=== PATIENT | female | born 1990 | race Hispanic/Latino ===

== ENCOUNTER 2017-11-01 05:38 | Emergency (ER) | payer OTHER, SELFPAY ==
[2017-11-01] MEDS ORDERED: Pantoprazole 40 MG VIAL ONE (06:11)
[2017-11-01] MEDS ORDERED: Ondansetron HCl/PF 4 MG/2 ML Vial ONE (06:11)
[2017-11-01 06:55] LABS: CKMB 0.6 ng/mL (0-6.6); Troponin I Less than 0.010 ng/mL (< 0.028)
[2017-11-01 07:01] LABS: Albumin 4.5 g/dL (3.5-5.0)
[2017-11-01 07:02] LABS: Chloride 106 mmol/L (98-107); Potassium 3.5 mmol/L (3.5-5.1); Sodium 139 mmol/L (136-145)
[2017-11-01 07:03] LABS: Calcium 9.8 mg/dL (7.8-10.44); Glucose 162 mg/dL (70-105)
[2017-11-01 07:04] LABS: Globulin 3.2 g/dL (2.4-3.5); Protein, Total 7.7 g/dL (6.0-8.3)
[2017-11-01 07:05] LABS: Anion Gap 16 mmol/L (10-20); Bilirubin, Total 0.3 mg/dL (0.2-1.2); Carbon Dioxide 21 mmol/L (22-29)
[2017-11-01 07:06] LABS: Alkaline Phosphatase 61 U/L (40-150)
[2017-11-01 07:07] LABS: Calc. Creatinine Clearance 0 mL/min (70-130); Estimated GFR-MDRD Greater than 90
[2017-11-01 07:08] LABS: BUN (Urea Nitrogen) 13 mg/dL (7.0-18.7)
[2017-11-01 07:09] LABS: ALT (SGPT) 10 U/L (8-55); AST (SGOT) 12 U/L (5-34); Lipase 14 U/L (8-78)
[2017-11-01 07:16] LABS: #Eosinphils 0.1 thou/uL (0.0-0.7); #Lymphocytes 1.7 thou/uL (1.20-3.40); #Neutrophils 15.6 thou/uL (1.40-6.50); %Basophils 0.2 % (0.0-1.0); %Eosinophils 0.7 % (0.0-10.0); %Lymphocytes 9.3 % (21.0-51.0); %Monocytes 5.3 % (0.0-10.0); %Neutrophils 84.5 % (42.0-75.0); Hemoglobin 13.6 g/dL (12.0-16.0); Mean Corpuscular HGB CONC 32.4 g/dL (32.0-36.0); Mean Corpuscular Hemoglobin 31.4 pg (27.0-31.0); Mean Corpuscular Volume 97.2 fl (81.0-99.0); Mean Platelet Volume 6.8 fL (7.4-10.4); Platelet Count 237 thou/uL (130-400); RBC Distribution Width 12.9 % (11.5-14.5); Red Blood Cell (RBC) Count 4.31 mill/uL (4.20-5.40); White Blood Cell (WBC) Count 18.5 thou/uL (4.8-10.8)
== END 2017-11-01 07:30 | disposition home or self-care (01) ==
LOC: ERS 05:38
DX: R11.2 Nausea with vomiting, unspecified (principal); R19.7 Diarrhea, unspecified; R10.9 Unspecified abdominal pain; F17.210 Nicotine dependence, cigarettes, uncomplicated
CPT/HCPCS: 80053; 82553; 83690; 84484; 85025; 96361; 96372; 96374; 96375; C9113; J2405

== ENCOUNTER 2018-04-25 17:34 | Emergency (ER) | payer BC, SELFPAY ==
[2018-04-25] MEDS ORDERED: Ondansetron ODT 8 MG TAB ONE (17:43)
[2018-04-25 18:41] LABS: #Basophils 0.1 thou/uL (0.0-0.2); #Eosinphils 0.2 thou/uL (0.0-0.7); #Monocytes 0.9 thou/uL (0.11-0.59); #Neutrophils 10.9 thou/uL (1.40-6.50); %Basophils 0.5 % (0.0-1.0); %Eosinophils 1.6 % (0.0-10.0); %Monocytes 6.6 % (0.0-10.0); %Neutrophils 77.3 % (42.0-75.0); Hemoglobin 14.6 g/dL (12.0-16.0); Mean Corpuscular HGB CONC 34.1 g/dL (32.0-36.0); Mean Corpuscular Hemoglobin 32.3 pg (27.0-31.0); Mean Corpuscular Volume 94.8 fL (78.0-98.0); Mean Platelet Volume 6.6 fL (7.4-10.4); Platelet Count 250 thou/uL (130-400); RBC Distribution Width 12.4 % (11.5-14.5); Red Blood Cell (RBC) Count 4.53 mill/uL (4.20-5.40); White Blood Cell (WBC) Count 14.1 thou/uL (4.8-10.8)
[2018-04-25 18:42] LABS: Bilirubin Negative (Negative); Blood, Urine Negative (Negative); Clarity CLEAR (Clear); Glucose, Urine (Dipstick) Negative (Negative); Leukocyte Small (Negative); Nitrite Negative (Negative); Protein, Urine (Dipstick) 100 mg/dL (Neg-Trace); Specific Gravity, Urine 1.027 (1.002-1.036); pH, Urine 8.5 (5.0-9.0)
[2018-04-25 18:45] LABS: Bacteria/HPF Rare-Few HPF (None Seen); WBC/HPF 0-3 HPF (0-3)
[2018-04-25 18:56] LABS: Pathc Cast-AUWi Flag 2.61 (0-2.49)
[2018-04-25 18:58] LABS: Pregnancy Test - Urine (BHCG) Negative (Negative); Pregu Control Background? CLEAR/WHITE (CLR/WHITE); Pregu Control Bar Appear? YES (CONTROL BAR); Specific Gravity 1.027 (1.002-1.036)
[2018-04-25 19:01] LABS: ALT (SGPT) 16 U/L (8-55); AST (SGOT) 16 U/L (5-34); Albumin 4.8 g/dL (3.5-5.0); Alkaline Phosphatase 68 U/L (40-150); Anion Gap 14 mmol/L (10-20); BUN (Urea Nitrogen) 11 mg/dL (7.0-18.7); Bilirubin, Total 0.7 mg/dL (0.2-1.2); Calc. Creatinine Clearance 0 mL/min (70-130); Calcium 9.6 mg/dL (7.8-10.44); Carbon Dioxide 23 mmol/L (22-29); Chloride 105 mmol/L (98-107); Estimated GFR-MDRD Greater than 90; Globulin 3.3 g/dL (2.4-3.5); Glucose 94 mg/dL (70-105); Lipase 8 U/L (8-78); Potassium 3.6 mmol/L (3.5-5.1); Protein, Total 8.1 g/dL (6.0-8.3); Sodium 138 mmol/L (136-145)
[2018-04-25 19:51] LABS: Hyaline Casts/LPF 0-3 HYALINE CAST LPF (0-3 Hyaline); Manual Microscopic Reviewed? No Path Casts Seen; RBC/HPF 0-3 HPF (0-3); Renal Epithelial None Seen HPF (0-3); Transitional Epithelial NONE SEEN HPF (0-3)
== END 2018-04-25 20:41 | disposition home or self-care (01) ==
LOC: ERS 17:34
DX: R11.2 Nausea with vomiting, unspecified (principal); F10.10 Alcohol abuse, uncomplicated; Z71.6 Tobacco abuse counseling; F17.210 Nicotine dependence, cigarettes, uncomplicated
CPT/HCPCS: 80053; 81003; 81015; 81025; 83690; 85025; 96360; 96361; 99406

== ENCOUNTER 2018-06-10 11:10 | Emergency (ER) | payer BC, SELFPAY ==
[2018-06-10 12:17] LABS: #Basophils 0.1 thou/uL (0.0-0.2); #Eosinphils 0.3 thou/uL (0.0-0.7); #Monocytes 0.8 thou/uL (0.11-0.59); #Neutrophils 6.4 thou/uL (1.40-6.50); %Basophils 0.5 % (0.0-1.0); %Eosinophils 2.3 % (0.0-10.0); %Lymphocytes 34.6 % (21.0-51.0); %Monocytes 6.7 % (0.0-10.0); %Neutrophils 55.9 % (42.0-75.0); Hemoglobin 12.5 g/dL (12.0-16.0); Mean Corpuscular HGB CONC 33.3 g/dL (32.0-36.0); Mean Corpuscular Hemoglobin 32.2 pg (27.0-31.0); Mean Corpuscular Volume 96.6 fL (78.0-98.0); Mean Platelet Volume 6.8 fL (7.4-10.4); Platelet Count 202 thou/uL (130-400); RBC Distribution Width 12.4 % (11.5-14.5); Red Blood Cell (RBC) Count 3.88 mill/uL (4.20-5.40); White Blood Cell (WBC) Count 11.4 thou/uL (4.8-10.8)
[2018-06-10 12:21] LABS: BHCG - Serum Negative (NEGATIVE); Pregs Control Background? CLEAR/WHITE (CLR/WHITE); Pregs Control Bar Appear? YES (CONTROL BAR)
[2018-06-10 12:42] LABS: ALT (SGPT) 11 U/L (8-55); AST (SGOT) 11 U/L (5-34); Albumin 4.2 g/dL (3.5-5.0); Alkaline Phosphatase 72 U/L (40-150); Anion Gap 12 mmol/L (10-20); BUN (Urea Nitrogen) 7 mg/dL (7.0-18.7); Bilirubin, Total 0.2 mg/dL (0.2-1.2); CK (CPK) 62 U/L (29-168); Calc. Creatinine Clearance 0 mL/min (70-130); Calcium 9.1 mg/dL (7.8-10.44); Carbon Dioxide 26 mmol/L (22-29); Chloride 104 mmol/L (98-107); Estimated GFR-MDRD Greater than 90; Globulin 2.8 g/dL (2.4-3.5); Glucose 101 mg/dL (70-105); Potassium 3.6 mmol/L (3.5-5.1); Sodium 138 mmol/L (136-145)
[2018-06-10 12:56] LABS: Bilirubin Negative (Negative); Blood, Urine Negative (Negative); Clarity CLOUDY (Clear); Glucose, Urine (Dipstick) Negative (Negative); Leukocyte Negative (Negative); Nitrite Negative (Negative); Protein, Urine (Dipstick) Negative (Neg-Trace); Specific Gravity, Urine 1.024 (1.002-1.036); Urobilinogen 0.2 mg/dL (0.2-1.0)
[2018-06-10 13:11] LABS: Amphetamine Not Detected (NotDetected); Barbiturates Screen Not Detected (NotDetected); Benzodiazepine Screen Detected (NotDetected); Cocaine Metabolite Screen Not Detected (NotDetected); Medtox Control Line Valid? VALID (VALID); Medtox Reader # READER 1; Methadone Not Detected (NotDetected); Methamphetamine Not Detected (NotDetected); Opiate Screen Not Detected (NotDetected); Oxycodone Screen Not Detected (NotDetected); Phencyclidine (PCP) Not Detected (NotDetected); THC/Cannabinoid Screen Detected (NotDetected); Tricyclic Screen Not Detected (NotDetected)
--- NOTE | 2018-06-10 13:36 | RAD ---
CHEST TWO VIEWS: HISTORY: Chest pain. COMPARISON: 03/16/2006 FINDINGS: The cardiac silhouette and pulmonary vasculature are unremarkable. The mediastinum is midline. No c onfluent air space consolidation, pneumothorax, or pleural fluid. IMPRESSION: No active cardiopulmonary abnormalities demonstrated. POS: [facility]
--- NOTE | 2018-06-19 14:38 | EKG ---
Test Reason : Blood Pressure : / mmHG Vent. Rate : 098 BPM Atrial Rate : 098 BPM P-R Int : 124 ms QRS Dur : 076 ms QT Int : 334 ms P-R-T Axes : 071 057 051 degrees QTc Int : 426 ms Normal sinus rhythm Possible Left atrial enlargement Borderline ECG Confirmed by ROSE MARIE TOVAR, MARICHUY Pruitt ([id number]), news videotape editor REJI FOFANA ([id number]) on 06/19/2018 2:38:08 PM Referred By: Confirmed By:MARICHUY TROTTER MD
== END 2018-06-10 13:54 | disposition home or self-care (01) ==
LOC: ERS 11:10
DX: M79.1 Myalgia (principal); F17.210 Nicotine dependence, cigarettes, uncomplicated
CPT/HCPCS: 71046; 80053; 80306; 81003; 82550; 84703; 85025; 93005; 96360; 96361

== ENCOUNTER 2018-07-21 08:36 | Outpatient (CLI) | payer MEDICAID | END 2018-07-21 08:37 | disposition home or self-care (01) | LOC: BICULT 08:36 | PROVIDERS: ATTEND Nurse Practitioner Women's Health | DX: N63.11 Unspecified lump in the right breast, upper outer quadrant (principal) ==

== ENCOUNTER 2019-06-16 20:12 | Emergency (ER) | payer MEDICAID, OTHER ==
[2019-06-16 20:41] LABS: #Eosinphils 0.3 thou/uL (0.0-0.7); #Lymphocytes 2.1 thou/uL (1.20-3.40); #Neutrophils 7.4 thou/uL (1.40-6.50); %Basophils 0.3 % (0.0-1.0); %Eosinophils 2.4 % (0.0-10.0); %Lymphocytes 19.6 % (21.0-51.0); %Monocytes 8.9 % (0.0-10.0); %Neutrophils 68.9 % (42.0-75.0); Hemoglobin 10.1 g/dL (12.0-16.0); Mean Corpuscular HGB CONC 35.9 g/dL (32.0-36.0); Mean Corpuscular Hemoglobin 33.2 pg (27.0-31.0); Mean Corpuscular Volume 92.5 fL (78.0-98.0); Mean Platelet Volume 6.6 fL (7.4-10.4); Platelet Count 227 thou/uL (130-400); RBC Distribution Width 11.3 % (11.5-14.5); Red Blood Cell (RBC) Count 3.03 mill/uL (4.20-5.40); White Blood Cell (WBC) Count 10.7 thou/uL (4.8-10.8)
[2019-06-16 21:02] LABS: ALT (SGPT) Less than 7 U/L (8-55); AST (SGOT) 8 U/L (5-34); Albumin 3.4 g/dL (3.5-5.0); Alkaline Phosphatase 104 U/L (40-150); Anion Gap 12 mmol/L (10-20); BUN (Urea Nitrogen) 8 mg/dL (7.0-18.7); Bilirubin, Total 0.2 mg/dL (0.2-1.2); Calc. Creatinine Clearance 0 mL/min (70-130); Calcium 8.6 mg/dL (7.8-10.44); Carbon Dioxide 20 mmol/L (22-29); Chloride 105 mmol/L (98-107); Estimated GFR-MDRD Greater than 90; Glucose 92 mg/dL (70-105); Potassium 3.3 mmol/L (3.5-5.1); Protein, Total 6.4 g/dL (6.0-8.3); Sodium 134 mmol/L (136-145)
[2019-06-16 21:11] LABS: Bacteria/HPF None Seen HPF (None Seen); Bilirubin Negative (Negative); Blood, Urine Negative (Negative); Clarity Clear (Clear); Glucose, Urine (Dipstick) Normal (Negative); Leukocyte 250 Leu/uL (Negative); Nitrite Negative (Negative); Protein, Urine (Dipstick) 30 mg/dL (Neg-Trace); RBC/HPF 0-3 HPF (0-3); Urobilinogen 6 mg/dL (Less than 2)
== END 2019-06-16 22:10 | disposition home or self-care (01) ==
LOC: ERS 20:12
DX: O98.513 Other viral diseases complicating pregnancy, third trimester (principal); O21.2 Late vomiting of pregnancy; Z3A.28 28 weeks gestation of pregnancy; Z87.891 Personal history of nicotine dependence
CPT/HCPCS: 36415; 80053; 81003; 81015; 85025; 99283

== ENCOUNTER 2019-07-24 12:20 | Day surgery (SDC) | payer OTHER ==
[2019-07-24 12:45] VITALS: BP 112/65; TEMP 98; BMI 26.6
[2019-07-24] MEDS ORDERED: hydrALAZINE 20 MG/ML VIAL SLOW IVP PRN (12:45)
[2019-07-24] MEDS ORDERED: Lactated Ringer's 1,000 ML IV SCH (13:00)
--- NOTE | 2019-07-24 13:05 | PDOC.FPROB ---
FMR OB H&P: HPI - History of Present Illness Chief Complaint: Contractions Indentification: 29 year old at 34.2 wks History of Present Illness: 29 year old at 34.2 wks by LMP/7 wk meenakshi with TRAE 09/02/2019 presents with contractions since 11 AM. Patient was at work and the pain was bad enough that she felt like she couldn't stand up straight or walk. She states she feels vaginal pressure and vaginal pain. She is unable to state how far apart the contractions are as it just "hurts". She endorses white, thick vaginal discharge since this morning that has an odor. She denies any STD's during this . Patient endorses having intercourse within the last 48 hours. She denies vaginal bleeding. She endorses good movement. 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 She denies alcohol or drug use. - Family History Family History: Family hx DM FMR OB H&P: Medications - Current Home Medications: Medication Instructions Recorded Confirmed Type metroNIDAZOLE [Flagyl] 500 mg PO BID #14 tab 07/24/19 Rx Allergies/Adverse Reactions: Allergies Allergy/AdvReac Type Severity Reaction Status Date / Time No Known Allergies Allergy Verified 07/24/19 12:46 FMR OB H&P: ROS - Review of Systems General: denies: fever/chills, weight/appetite/sleep changes Eyes: denies: vision changes ENT: denies: nasal congestion, sore throat Cardiovascular: denies: chest pain, palpitation, edema Respiratory: denies: cough, congestion, shortness of breath Gastrointestinal: reports: abdominal pain, vomiting (AM when waking). denies: diarrhea, constipation Genitourinary (Female): reports: vaginal discharge, vaginal pain, vaginal pressure. denies: dysuria, vaginal bleeding Musculoskeletal: denies: pain, stiffness Neurologic: denies: numbness, syncope Integumentary: denies: itching, rash, lesions Hematologic/Lymphatic: denies: prolonged or excessive bleeding Psychological: denies: depression, anxiety FMR OB H&P: Vital Signs - Maternal Vital signs: Vital Signs - First Documented Temp Pulse Resp BP Pulse Ox 98.0 F 92 18 112/65 97 07/24/19 12:36 07/24/19 12:36 07/24/19 12:36 07/24/19 12:36 07/24/19 12:36 - Heart Tones Baseline: 120 Variability: moderate Acceleration: present Deceleration: variable Category: category 2 [place] contractions every: q3-5 min FMR OB H&P: Physical Exam - Physical Exam General: awake, alert and oriented Deviation from normal: Deep breathing, mild distress HEENT: MMM, grossly normal vision, grossly normal hearing Heart: RRR, pulses present, no edema General: CTAB, no respiratory distress Abdomen: soft, gravid, non-tender Musculoskeletal: pulses present, FROM in all four extremities Neurological: no tremor, no focal deficit Skin: no rash, capillary refill <2 seconds Lymphatic: no unusual bruising or bleeding, no purpura - Pelvic Exam SVE: 50/-3 Presentation: cephalic based on ultrasound FMR OB H&P: A/P - Problem List (1) Status: Acute (2) Glucose intolerance Status: Acute Code(s): E74.39 - OTHER DISORDERS OF INTESTINAL CARBOHYDRATE ABSORPTION (3) Cervical dysplasia Status: Acute (4) GERD (gastroesophageal reflux disease) Status: Acute Code(s): K21.9 - GASTRO-ESOPHAGEAL REFLUX DISEASE WITHOUT ESOPHAGITIS (5) Tobacco abuse Status: Acute Code(s): Z72.0 - TOBACCO USE (6) Spontaneous Status: Acute Code(s): O03.9 - COMPLETE OR UNSP SPONTANEOUS WITHOUT COMPLICATION Disposition: 29 year old at 34.2 wks presents with contractions 1. sIUP w/ contractions - Contractions q3-5 min - >34 wks, so FFN not as useful; patient has also had vaginal manipulation in last 48h - Cervical length via TVUS 4 cm - Cervical check /-3 - Sterile speculum exam with moderate amount of foul smelling, white, thick, mucous discharge. VP3 positive for trichomonas and BV. GC/CT pending. - 1L fluid bolus - Cephalic presentation on ultrasound 2. Glucose intolerance - 1h GTT 154, patient reports normal 3h GTT 3. Cervical dysplasia - s/p colpo - NILM 06/2018 4. GERD - Recommend continued use of PPI 5. Hx CT in 2014 - neg this - GC/CT pending 6. Hx tobacco use - Patient states she quit and has not smoked during this 7. SAB x3 - Different FOB's 8. Hx BV in - s/p treatment 2 months ago Dispo: Ruled out PTL. Contractions have stopped on monitor. Patient with trichomonas and BV. Will send Flagyl 500 mg BID x7 days to pharmacy. Patient will need CHRISTIE in 3-4 weeks. Advised patient to refrain from sexual intercourse until her partner has been evaluated and treated. Return precautions provided. Discussion: Date/Time: 07/24/19 1300 This H&P was discussed with Dr. Cody who agrees with the above documentation and plan. Signature: Lulu Dorantes DO PGY-3 Addendum - Attending - Attending Attestation Date/Time: 07/24/192150 I personally evaluated the patient and discussed the management with Dr. Dorantes. I agree with the History, Examination, Assessment and Plan documented above with any addition or exceptions noted below. 29 year old at 34.2 wks here with abd pain. No evidence of labor. Category 1 strip. BV and Trich. Stable for d/c home with Rx and counseled.
--- NOTE | 2019-07-24 14:05 | ULT ---
EXAM: Limited pelvic ultrasound PROVIDED CLINICAL HISTORY: Assess cervical length COMPARISON: None FINDINGS: The cervix measures 4 cm in length. The cervix appears closed. IMPRESSION: As above.
[2019-07-25 19:48] LABS: Chlamydia by PCR Not Detected (NotDetected); GC by PCR Not Detected (NotDetected)
== END 2019-07-24 15:08 | disposition home health service (06) ==
LOC: L&D/OP 12:20
PROVIDERS: ATTEND Family Medicine
DX: O47.03 False labor before 37 completed weeks of gestation, third trimester (principal); O99.613 Diseases of the digestive system complicating pregnancy, third trimester; K21.9 Gastro-esophageal reflux disease without esophagitis; O99.283 Endocrine, nutritional and metabolic diseases complicating pregnancy, third trimester; E74.39 Other disorders of intestinal carbohydrate absorption; O98.313 Other infections with a predominantly sexual mode of transmission complicating pregnancy, third trimester; A59.01 Trichomonal vulvovaginitis; Z3A.34 34 weeks gestation of pregnancy; Z87.891 Personal history of nicotine dependence
CPT/HCPCS: 76856; 87480; 87491; 87510; 87591; 87660

== ENCOUNTER 2019-08-26 22:51 | Inpatient (IN) | payer OTHER ==
[~2019-08-26 22:51] MED LIST: Bupivacaine HCl 0.5%/Epinephrine 1:200,000/PF 30 ml Vial ONE
[2019-08-26] MEDS ORDERED: Methylergonovine 0.2 MG/ML VIAL IM PRN (23:35)
[2019-08-26] MEDS ORDERED: hydrALAZINE 20 MG/ML VIAL SLOW IVP PRN (23:35)
[2019-08-26] MEDS ORDERED: Ibuprofen 800 MG TAB PO PRN (23:35)
[2019-08-26] MEDS ORDERED: Lidocaine 1% (PF) 30 ML VIAL SC PRN (23:35)
[2019-08-26] MEDS ORDERED: Promethazine HCl 25 MG/ML VIAL IM PRN (23:35)
[2019-08-26] MEDS ORDERED: Butorphanol Tartrate 1 MG/ML VIAL SLOW IVP PRN (23:35)
[2019-08-26] MEDS ORDERED: Carboprost 250 MCG/ML AMP IM PRN (23:35)
[2019-08-26] MEDS ORDERED: Ondansetron PF 4 MG/2 ML Vial IVP PRN (23:35)
[2019-08-26] MEDS ORDERED: Misoprostol 200 MCG TAB PR PRN (23:35)
--- NOTE | 2019-08-26 23:35 | PDOC.FPROB ---
FMR OB H&P: HPI - History of Present Illness Chief Complaint: Contractions Indentification: 25yo History of Present Illness: 29 year old at 39.0 wks by LMP/7 wk sono with TRAE 09/02/2019 presents with painful contractions since 2200. Denies any vaginal bleed, discharge, loss of fluid. Confirms good movement. Primary Care Physician: Dr. 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: Hx of chlamydia in 2014, negative this Trich in this with no CHRISTIE reported Hx of cervical dysplasia - s/p colpo NILM 06/2018 - Surgical History Sx History: Appendectomy - Social History Social History: Denies alcohol or drug use Was smoking 3 cigs per week pre- - Family History Family History: + DM FMR OB H&P: Medications - Current Home Medications: Medication Instructions Recorded Confirmed Type metroNIDAZOLE [Flagyl] 500 mg PO BID #14 tab 07/24/19 Rx Allergies/Adverse Reactions: Allergies Allergy/AdvReac Type Severity Reaction Status Date / Time No Known Allergies Allergy Verified 07/24/19 12:46 FMR OB H&P: Vital Signs - Maternal Vital signs: Blood pressure: 98/74 Pulse: 92 Afebrile - Heart Tones Baseline: 130 Variability: moderate Acceleration: present Deceleration: absent Category: category 1 [place] contractions every: 3-4 min FMR OB H&P: A/P - Problem List (1) Term Current Visit: Yes Status: Acute Code(s): Z34.90 - ENCNTR FOR SUPRVSN OF NORMAL , UNSP, UNSP TRIMESTER (2) Group B streptococcal infection during Current Visit: Yes Status: Acute Code(s): O98.819 - OTH MATERNAL INFEC/ PARASTC DISEASES COMP PREG, UNSP TRI; B95.1 - STREPTOCOCCUS, GROUP B, CAUSING DISEASES CLASSD ELSWHR (3) Trichomonal vaginitis during Current Visit: Yes Status: Acute Code(s): O23.599 - INFECTION OTH PRT GENITAL TRACT IN , UNSP TRIMESTER; A59.01 - TRICHOMONAL VULVOVAGINITIS (4) Active labor at term Current Visit: Yes Status: Acute Code(s): RAB0828 - (5) Cervical dysplasia Current Visit: No Status: Acute (6) GERD (gastroesophageal reflux disease) Current Visit: No Status: Acute Code(s): K21.9 - GASTRO-ESOPHAGEAL REFLUX DISEASE WITHOUT ESOPHAGITIS (7) Glucose intolerance Current Visit: No Status: Acute Code(s): E74.39 - OTHER DISORDERS OF INTESTINAL CARBOHYDRATE ABSORPTION (8) Tobacco abuse Current Visit: No Status: Acute Code(s): Z72.0 - TOBACCO USE Disposition: 29 yo @39.0wk via LMP/7.2wk sono presents in active labor TIUP in active labor - /-2 - Admit to L&D for expectant management - Uncomplicated - GBS +, will start Pen G for prophylaxis - Desires epidural - Anesthesia consulted Trichomonas - + 07/24 - No reported test of cure GBS positive - Pen G prophylaxis Cervical dysplasia - s/p colpo - NILM Tobacco Use - Quit in 1st trimester Hx of SAB x3 - Different FOB - No D&C's Dispo: Admit to L&D for expectant management Discussion: Date/Time: 08/26/19 9447 This H&P was discussed with Dr. Machado and Dr. Dorantes who agree with the above documentation and plan. Signature: Gianluca Collins D.O. - PGY1
[2019-08-26] MEDS ORDERED: Lactated Ringer's 1,000 ML IV SCH (23:45)
[2019-08-26] MEDS ORDERED: Fentanyl 4 mcg/Bup 0.1% Cadd 100 ML ONE (23:52)
[2019-08-26 23:53] LABS: Hemoglobin 11.5 g/dL (12.0-16.0); Mean Corpuscular HGB CONC 34.1 g/dL (32.0-36.0); Mean Corpuscular Hemoglobin 30.6 pg (27.0-31.0); Mean Platelet Volume 7.4 fL (7.4-10.4); Platelet Count 219 thou/uL (130-400); RBC Distribution Width 12.3 % (11.5-14.5); Red Blood Cell (RBC) Count 3.76 mill/uL (4.20-5.40); White Blood Cell (WBC) Count 12.8 thou/uL (4.8-10.8)
[2019-08-26] MEDS ORDERED: Penicillin G Potassium 5 MILL.UNITS in Sodium Chloride 0.9% 100 ML IVPB SCH (23:59)
[2019-08-27 00:28] VITALS: BMI 28.0
[2019-08-27 00:30] LABS: Syphilis Antibody Nonreactive (Nonreactive); Syphilis Antibody Index 0.05 S/CO (<1.00 Non-Reactive)
[2019-08-27] MEDS ORDERED: Acetaminophen 325 MG TAB PO PRN (00:36)
[2019-08-27] MEDS ORDERED: Naloxone HCl 0.4 mg/ml Vial IVP PRN ×2 (00:36)
[2019-08-27] MEDS ORDERED: ePHEDrine/0.9% NaCl/PF SYRINGE 50 mg/10 ml SLOW IVP PRN (00:36)
[2019-08-27] MEDS ORDERED: Lactated Ringer's 500 ML IV PRN (00:36)
[2019-08-27] MEDS ORDERED: diphenhydrAMINE 50 MG/ML VIAL IVP PRN (00:36)
[2019-08-27] MEDS ORDERED: Ondansetron PF 4 MG/2 ML Vial IVP PRN ×3 (00:36→06:38)
[2019-08-27] MEDS ORDERED: Promethazine HCl 25 MG/ML VIAL IM PRN (00:36)
[2019-08-27] MEDS ORDERED: Fentanyl 4 mcg/Bupivacaine 0.1% Cassette 100 ML EPIDURAL SCH (00:45)
[2019-08-27] MEDS ORDERED: Communication Order-Pharmacy FS SCH ×2 (00:45→06:45)
[2019-08-27 01:33] LABS: HBSAg Index 0.12 S/CO (0-0.99); Hep B Surf Ag Non-Reactive S/CO (NonReactive)
--- NOTE | 2019-08-27 04:22 | PDOC.OPDEL ---
OB Operative/Delivery Note Delivery Dr/Surgeon: Dr. Collins Assist: Dr. Dorantes - Dr. Machado attending Pre-Delivery Diagnosis: active labor Procedure/Post Delivery Dx: spontaneous vaginal delivery Weeks gestation: 39 (1) Anesthesia: epidural - Findings A Sex: male - 1 min: 9 - 5 min: 9 - Additional Findings/Plan Placenta delivered: spontaneous Repaired Obstetrical Laceration: none Estimated blood loss: 128 Compilations/Other Findings: Vaginal Delivery Note This is a 29 year old female @ 39.1wks who delivered a viable M infant at 0408 on 08/27/2019. SROM with meconium noted prior to delivery. Following an uneventful antepartum course, a vigorous male was delivered over an intact perineum in the occipitoanterior position. Anterior Shoulder and then remainder of the body delivered. No nuchal cord. The head was held down and mouth and nares were bulb suctioned. Cord clamped and cut and cord blood collected. Placenta delivered intact with a 3 vessel cord noted. Fundal massage was performed and the fundus was firm. The cervix and vagina were inspected and found to be free of lacerations. went to nursery in good condition for routine care. Apgars were 9/9 at 1 & 5 minutes, respectively. Patient tolerated delivery well and went to after routine recovery/ care. Post delivery plan: routine recovery
[2019-08-27] MEDS: NS / Oxytocin 40 units/1000ml 1,000 ML IV PRN ×2 (04:59→06:10)
[2019-08-27] MEDS ORDERED: Penicillin G 2.5 MILL.units 2.5 MILL.UNITS in Premix Bag 1 BAG IVPB SCH (05:00)
[2019-08-27] MEDS ORDERED: hydrALAZINE 20 MG/ML VIAL SLOW IVP PRN ×2 (06:10→06:37)
[2019-08-27] MEDS ORDERED: NS / Oxytocin 40 units/1000ml 1,000 ML IV SCH ×2 (06:10→06:45)
[2019-08-27] MEDS ORDERED: Preparation H Ointment 28 GM TUBE PR PRN ×2 (06:10→06:38)
[2019-08-27] MEDS ORDERED: Milk Of Magnesia 30 ML UDCUP PO PRN ×2 (06:10→06:37)
[2019-08-27] MEDS ORDERED: Ibuprofen 800 MG TAB PO SCH (06:10)
[2019-08-27] MEDS ORDERED: diphenhydrAMINE 25 MG CAP PO PRN ×2 (06:10→06:36)
[2019-08-27] MEDS ORDERED: Lanolin Ointment 7 GM TUBE TOP PRN ×2 (06:10→06:37)
[2019-08-27] MEDS ORDERED: Bisacodyl 10 MG SUPP PR PRN ×2 (06:10→06:35)
[2019-08-27] MEDS ORDERED: Butorphanol Tartrate 1 MG/ML VIAL SLOW IVP PRN (06:35)
[2019-08-27] MEDS ORDERED: Ferrous Sulfate 325 MG TAB PO SCH (08:00)
[2019-08-27] MEDS ORDERED: Prenatal Vitamin 1 TAB PO SCH (09:00)
[2019-08-27] MEDS ORDERED: Docusate Calcium (SURFAK) 240 MG CAP PO SCH (09:00)
[2019-08-27] MEDS: Ferrous Sulfate 325 MG TAB PO SCH ×2 (09:38→16:52)
[2019-08-27] MEDS: Docusate Calcium (SURFAK) 240 MG CAP PO SCH ×2 (09:38→21:06)
[2019-08-27] MEDS: Prenatal Vitamin 1 TAB PO SCH (09:38)
[2019-08-27] MEDS: Ibuprofen 800 MG TAB PO SCH ×2 (13:50→21:06)
[2019-08-28] MEDS: Ibuprofen 800 MG TAB PO SCH ×3 (05:37→21:53)
--- NOTE | 2019-08-28 05:41 | PDOC.PP ---
Post Progress Note Post Day #: 1 PO intake tolerated: yes Flatus: yes Ambulation: yes Vital Signs (12 hours) Temp Pulse Resp BP BP Pulse Ox 08/28/19 03:35 98.6 F 74 16 94/54 L 08/28/19 00:15 98.6 F 92 16 99/51 L 08/27/19 20:15 98.4 F 89 20 118/89 99 Weight Weight 69.4 kg - Physical Examination General: NAD Cardiovascular: no m/r/g, RRR Respiratory: clear to auscultation bilaterally, non-labored breathing Abdominal: + bowel sounds, lochia, no distention, appropriately TTP Extremities: negative homans (B) Skin: no rash Neurological: no gross focal deficits Psychiatric: A&Ox3, normal affect Result Diagrams: 08/26/19 23:44 Additional Labs: Post Labs Blood Type O POSITIVE 08/26/19 23:44 Hep Bs Antigen Non-Reactive S/CO (NonReactive) 08/26/19 23:44 - Assessment/Plan Patient is a 29F G3 now P3033 who had a at 39.1wks on 08/27 @ 0408 #PPD 1 -mild lochia -abdominal pain well controlled -uterus firm, slightly below the level of the umbilicus -tolerating PO, voiding/stooling -ambulating well -plans to follow up with [facility] for pp care, discussed pelvic rest for 6 weeks -plans to have nexplanon for pp contraception #GBS Positive -received 2 doses penicillin prior to delivery -baby will be monitored for at least 48 hours Dispo: pp floor for monitoring, tylenol/ibp for pain control, likely d/c tmrw Addendum - Attending - Attending Attestation Date/Time: 08/28/19 1021 I personally evaluated the patient and discussed the management with Dr. Lawler. I agree with the History, Examination, Assessment and Plan documented above with any addition or exceptions noted below.
[2019-08-28] MEDS ORDERED: Adacel (T-DAP) 0.5 ML SYRINGE IM ONE (08:00)
[2019-08-28] MEDS ORDERED: FLU VACC QS2019-20(6MOS UP)/PF 60 MCG/0.5 ML SYRINGE IM ONE (09:00)
[2019-08-28] MEDS: Ferrous Sulfate 325 MG TAB PO SCH ×2 (09:04→16:53)
[2019-08-28] MEDS: Prenatal Vitamin 1 TAB PO SCH (09:37)
[2019-08-28] MEDS: Docusate Calcium (SURFAK) 240 MG CAP PO SCH ×2 (09:38→21:53)
[2019-08-29] MEDS: Ibuprofen 800 MG TAB PO SCH (05:24)
--- NOTE | 2019-08-29 05:27 | PDOC.PP ---
Post Progress Note Post Day #: 2 Subjective: Patient doing well this morning. Reporting of minimal abdominal pain, mild lochia, well. PO intake tolerated: yes Flatus: yes Ambulation: yes Vital Signs (12 hours) Temp Pulse Resp BP Pulse Ox 08/28/19 19:40 98.6 F 64 16 103/77 99 Weight Weight 69.4 kg - Physical Examination General: NAD Cardiovascular: no m/r/g, RRR Respiratory: clear to auscultation bilaterally, non-labored breathing Abdominal: + bowel sounds, lochia, no distention, appropriately TTP Extremities: negative homans (B) Skin: no rash Neurological: no gross focal deficits Psychiatric: A&Ox3, normal affect Result Diagrams: 08/26/19 23:44 Additional Labs: Post Labs Blood Type O POSITIVE 08/26/19 23:44 Hep Bs Antigen Non-Reactive S/CO (NonReactive) 08/26/19 23:44 - Assessment/Plan Patient is a 29F G3 now P3033 who had a at 39.1wks on 08/27 @ 0408 #PPD 2 -mild lochia -abdominal pain well controlled -uterus firm, slightly below the level of the umbilicus -tolerating PO, voiding/stooling -ambulating well -plans to follow [facility] with [facility] for pp care, discussed pelvic rest for 6 weeks -plans to have nexplanon for pp contraception #GBS Positive -abx ppx <4hr before delivery -baby monitored for at least 48 hours Dispo: d/c today with f/u in 6 wks for pp care, and bring baby back tmrw for bili check Addendum - Attending - Attending Attestation Date/Time: 08/29/19 6567 I personally evaluated the patient and discussed the management with Dr. Lawler. I agree with the History, Examination, Assessment and Plan documented above with any addition or exceptions noted below.
[2019-08-29] MEDS: Ferrous Sulfate 325 MG TAB PO SCH (07:36)
[2019-08-29 08:19] VITALS: BP 103/69; TEMP 98.2
[2019-08-29] MEDS: Prenatal Vitamin 1 TAB PO SCH (09:53)
[2019-08-29] MEDS: Docusate Calcium (SURFAK) 240 MG CAP PO SCH (09:53)
== END 2019-08-29 12:25 | disposition home or self-care (01) | DRG 806 ==
LOC: L&D/OP 22:51 → L&D 08-27 00:25 → 3SW 08-27 06:51
PROVIDERS: ADMIT Family Medicine; ATTEND Family Medicine
PROC: 10E0XZZ Delivery of Products of Conception, External Approach (ICD-10-PCS; principal; 2019-08-27)
PROC: 3E02340 Introduction of Influenza Vaccine into Muscle, Percutaneous Approach (ICD-10-PCS; 2019-08-29)
DX: O99.824 Streptococcus B carrier state complicating childbirth (principal); O98.32 Other infections with a predominantly sexual mode of transmission complicating childbirth; Z37.0 Single live birth; Z3A.39 39 weeks gestation of pregnancy; A59.01 Trichomonal vulvovaginitis; O99.89 Other specified diseases and conditions complicating pregnancy, childbirth and the puerperium; N87.9 Dysplasia of cervix uteri, unspecified; K21.9 Gastro-esophageal reflux disease without esophagitis; O99.613 Diseases of the digestive system complicating pregnancy, third trimester; E74.39 Other disorders of intestinal carbohydrate absorption; O99.333 Smoking (tobacco) complicating pregnancy, third trimester; F17.200 Nicotine dependence, unspecified, uncomplicated; Z23 Encounter for immunization
CPT/HCPCS: 36415; 51702; 85027; 86780; 86850; 86900; 86901; 87340; 90471; 90686; 99285; G0008; J0670; J2540; J3490